=== PATIENT | female | born 1975 | race Caucasian/White ===

== ENCOUNTER 2020-12-16 01:27 | Emergency (ER) | payer BC, SELFPAY ==
[2020-12-16 01:49] LABS: Bilirubin Negative (Negative); Blood, Urine Small (Negative); Clarity Clear (Clear); Glucose, Urine (Dipstick) Negative (Negative); Ketone, Urine Trace mg/dL (Negative); Leukocyte Trace (Negative); Nitrite Positive (Negative); Protein, Urine (Dipstick) 100 mg/dL (Neg-Trace)
[2020-12-16 01:53] LABS: RBC/HPF 0-3 HPF (0-3); Squamous Epithelial 0-3 HPF (0-3)
[2020-12-16 01:54] LABS: Bacteria/HPF 1+ HPF (None Seen)
[2020-12-16] MEDS ORDERED: Acetaminophen 500 MG TAB ONE (02:09)
[2020-12-16 02:26] LABS: Hemoglobin 11.1 g/dL (12.0-16.0); Mean Corpuscular HGB CONC 32.2 g/dL (32.0-36.0); Mean Corpuscular Hemoglobin 30.8 pg (27.0-31.0); Mean Corpuscular Volume 95.9 fL (78.0-98.0); Mean Platelet Volume 8.6 fL (7.4-10.4); Platelet Count 282 thou/uL (130-400); RBC Distribution Width 11.8 % (11.5-14.5); Red Blood Cell (RBC) Count 3.58 mill/uL (4.20-5.40); White Blood Cell (WBC) Count 15.8 thou/uL (4.8-10.8)
[2020-12-16] MEDS ORDERED: Sodium Chloride 0.9% 100 ML ONE (02:26)
[2020-12-16] MEDS ORDERED: cefTRIAXone\\ROCEPHIN 2 GM VIAL ONE (02:26)
[2020-12-16] MEDS ORDERED: Sodium Chloride 0.9% 2,000 ML ONE (02:27)
[2020-12-16] MEDS ORDERED: Ondansetron PF 4 MG/2 ML Vial ONE (02:27)
[2020-12-16 02:30] LABS: Band 10 % (5-11); Eosinophils 1 % (0-10); Lymphocytes 16 % (21-51); MDiff Complete? YES; Monocytes 3 % (0-10); Neutrophil 70 % (42-75); Platelet Morphology Comment Appears Adequate; RBC Morphology Normal
[2020-12-16 02:33] LABS: Potassium 2.9 mmol/L (3.5-5.1)
[2020-12-16 02:34] LABS: BHCG - Serum Negative (NEGATIVE); Pregs Control Bar Appear? YES (CONTROL BAR)
[2020-12-16 02:35] LABS: ALT (SGPT) 21 U/L (8-55); AST (SGOT) 16 U/L (5-34); Alkaline Phosphatase 86 U/L (40-110); BUN (Urea Nitrogen) 9 mg/dL (7.0-18.7); Bilirubin, Total 0.4 mg/dL (0.2-1.2); Calc. Creatinine Clearance 0 mL/min (70-130); Calcium 9.4 mg/dL (7.8-10.44); Carbon Dioxide 21 mmol/L (22-29); Chloride 102 mmol/L (98-107); Globulin 3.4 g/dL (2.4-3.5); Glucose 136 mg/dL (70-105); Protein, Total 7.4 g/dL (6.0-8.3); Sodium 135 mmol/L (136-145)
[2020-12-16 02:37] LABS: Anion Gap 16 mmol/L (10-20)
[2020-12-16] MEDS ORDERED: Morphine 4 MG/ML VIAL ONE (02:46)
[2020-12-16] MEDS ORDERED: Potassium Chloride 20 MEQ TAB ONE (03:17)
== END 2020-12-16 04:21 | disposition short-term general hospital (02) ==
LOC: NAV ERS 01:27
DX: N10 Acute pyelonephritis (principal); E87.6 Hypokalemia; D64.9 Anemia, unspecified; F17.210 Nicotine dependence, cigarettes, uncomplicated
CPT/HCPCS: 74176; 80053; 81003; 81015; 83605; 83690; 84703; 85025; 87040; 87077; 87086; 87186; 96365; 96375; J0696; J2270; J2405; J3490; J7050

== ENCOUNTER 2023-02-21 16:33 | Emergency (ER) | payer SELFPAY ==
[2023-02-21] MEDS ORDERED: HYDROcodone/Acetaminophen 5/325 mg Tablet ONE (17:43)
== END 2023-02-21 17:45 | disposition home or self-care (01) ==
LOC: NAV ERS 16:33
DX: S39.012A Strain of muscle, fascia and tendon of lower back, initial encounter (principal); F17.210 Nicotine dependence, cigarettes, uncomplicated; X58.XXXA Exposure to other specified factors, initial encounter
CPT/HCPCS: 99283